=== PATIENT | female | born 1990 ===

== ENCOUNTER 2021-04-06 04:38 | Inpatient (IN) | payer BC, MEDICAID ==
[2021-04-06] MEDS ORDERED: Sodium Chloride 0.9% 20 ML SDV IV PRN (05:19)
[2021-04-06] MEDS ORDERED: Butorphanol 1 MG/ML SDV IVPUSH PRN (05:19)
[2021-04-06] MEDS ORDERED: Water For Irrigation,Sterile 1,000 ML Container IRR PRN (05:19)
[2021-04-06] MEDS ORDERED: Sodium Chloride 0.9% 10 ML Syringe FLUSH PRN (05:19)
[2021-04-06] MEDS ORDERED: Tranexamic Acid 1,000 MG in Sodium Chloride 0.9% 100 ML IV PRN ×2 (05:19→07:04)
[2021-04-06] MEDS ORDERED: Lidocaine 1% 50 ML MDV INJECT PRN (05:19)
[2021-04-06] MEDS ORDERED: Ondansetron 4 MG/2 ML SDV IVPUSH PRN (05:19)
[2021-04-06] MEDS ORDERED: Carboprost Tromethamine 250 MCG/1 ML Amp IM PRN (05:19)
[2021-04-06] MEDS ORDERED: Methylergonovine 0.2 MG/1 ML Amp IM PRN ×2 (05:19→07:04)
[2021-04-06] MEDS ORDERED: Nalbuphine 10 MG/1 ML Vial IVPUSH PRN (05:19)
[2021-04-06] MEDS ORDERED: Misoprostol 200 MCG Tab PO PRN (05:19)
[2021-04-06] MEDS ORDERED: Sodium Chloride 0.9% 2.5 ML Syringe FLUSH PRN (05:19)
[2021-04-06] MEDS ORDERED: Sodium Chloride 0.9% 20 ML SDV FLUSH PRN (05:26)
[2021-04-06] MEDS ORDERED: Lactated Ringers 1,000 ML IV SCH (05:30)
[2021-04-06] MEDS ORDERED: Oxytocin/0.9 % Sodium Chloride 30 UNIT/500 ML BAG IV SCH (05:30)
[2021-04-06] MEDS ORDERED: Witch Hazel Medicated Pads 40/Jar TOP PRN (07:04)
[2021-04-06] MEDS ORDERED: Lanolin 100% Cream 7 GM Tube TOP PRN (07:04)
[2021-04-06] MEDS ORDERED: Bisacodyl 10 MG Supp RECTAL PRN (07:04)
[2021-04-06] MEDS ORDERED: Docusate Sodium 100 MG Cap PO PRN (07:04)
[2021-04-06] MEDS ORDERED: Acetaminophen 500 MG Tab PO PRN (07:04)
[2021-04-06] MEDS ORDERED: Benzocaine/Menthol 20%-0.5% Spray 78 GM Cannister TOP PRN (07:04)
[2021-04-06] MEDS ORDERED: Ibuprofen 400 MG Tab PO PRN (07:04)
[2021-04-06] MEDS: Ibuprofen 800 MG Tab PO PRN ×2 (07:36→16:08)
[2021-04-06] MEDS: Acetaminophen 500 MG Tab PO PRN ×2 (12:46→20:54)
[2021-04-07] MEDS: Acetaminophen 500 MG Tab PO PRN (05:09)
[2021-04-07] MEDS: Ibuprofen 800 MG Tab PO PRN (14:54)
[2021-04-08] MEDS ORDERED: Benzonatate 100 MG Cap PO PRN (00:23)
[2021-04-08] MEDS: Benzocaine/Cetylpyridinium/Menthol Lozenge MUCMEM PRN ×2 (01:17→03:02)
[2021-04-08] MEDS: Acetaminophen 500 MG Tab PO PRN ×2 (03:02→08:07)
[2021-04-08] MEDS: Ibuprofen 800 MG Tab PO PRN (12:32)
== END 2021-04-08 13:15 | disposition home or self-care (01) | DRG 560 ==
LOC: MW.OBCHECK 04:38 → MW.OB 04:39 → MW.OBCHECK 05:19 → MW.OB 05:19 → OBSVTOIN 06:32 → MW.OB 10:26
PROVIDERS: ADMIT Obstetrics & Gynecology; ATTEND Obstetrics & Gynecology
PROC: 10E0XZZ Delivery of Products of Conception, External Approach (ICD-10-PCS; principal; 2021-04-06)
PROC: 3E0R3BZ Introduction of Anesthetic Agent into Spinal Canal, Percutaneous Approach (ICD-10-PCS; 2021-04-06)
PROC: 0KQM0ZZ Repair Perineum Muscle, Open Approach (ICD-10-PCS; 2021-04-06)
DX: O98.52 Other viral diseases complicating childbirth (principal); O76 Abnormality in fetal heart rate and rhythm complicating labor and delivery; Z3A.38 38 weeks gestation of pregnancy; Z37.0 Single live birth; U07.1 COVID-19; O70.1 Second degree perineal laceration during delivery
CPT/HCPCS: 36415; 82803; 84112; 85014; 85018; 85027; 86592; 86850; 86900; 86901; A9270-GY; J0595; J2001; J2590; J7120; U0002